=== PATIENT | female | born 1970 | race Caucasian/White ===

== ENCOUNTER 2020-07-07 12:31 | Observation (INO) ==
[2020-07-07] MEDS ORDERED: Ketorolac 15 MG/ML VIAL IVP ONE (12:51)
[2020-07-07] MEDS ORDERED: Ondansetron 4 MG/2 ML VIAL IVP ONE (12:51)
[2020-07-07] MEDS ORDERED: 0.9 % Sodium Chloride 1,000 ML IVC ONE (13:25)
[2020-07-07 13:36] LABS: Basophils # 0.1 K/mcL (0.0-0.2); Basophils % 0.3 %; Hematocrit 38.6 % (35.3-44.9); Hemoglobin 13.4 g/dL (11.5-15.4); Immature Granulocytes % 0.6 % (0-4); Lymphocytes # 1.1 K/mcL (0.6-4.6); Lymphocytes % 5.7 %; Mean Corpuscular HGB Conc 34.7 g/dL (31.6-35.5); Mean Corpuscular Hemoglobin 31.1 pg (28.0-33.3); Mean Corpuscular Volume 89.6 fL (83.0-100.0); Mean Platelet Volume 11.2 fL (9.4-12.4); Monocytes # 1.3 K/mcL (0.0-1.3); Monocytes % 6.4 %; Neutrophils # 16.9 K/mcL (1.6-8.9); Platelet Count 329 K/mcL (140-400); Red Blood Count 4.31 M/mcL (3.82-4.97); Red Cell Distribution Width 13.1 % (11.5-14.5); White Blood Count 19.4 K/mcL (4.3-11.1)
[2020-07-07 14:22] LABS: Bacteria,Urine Few per hpf (None-Few); Bilirubin,Urine Negative (Negative); Blood,Urine Trace (Negative); Clarity,Urine Clear (Clear); Color,Urine Colorless (Yellow); Glucose,Urine (UA) Normal (Normal); Ketones,Urine Trace mg/dL (Negative); Leukocyte Esterase,Urine Negative (Negative); Mucus,Urine Few per lpf (None-Few); Nitrite,Urine Negative (Negative); PH,Urine 6.5 pH Units (5.0-8.0); Protein,Urine Negative (Neg-Trace); RBC,Urine 0-3 per hpf (0-3); Specific Gravity,Urine 1.008 (1.010-1.025); Squamous Epithelial Cell,Urine Few per hpf (None-Few); Urobilinogen,Urine Normal (Normal); WBC,Urine 0-3 per hpf (0-3)
[2020-07-07 15:00] LABS: Calcium 8.4 mg/dL (8.6-10.3); Potassium 3.7 mEq/L (3.5-5.1)
[2020-07-07] MEDS ORDERED: *HR* HYDROcodone/Acet 7.5/325 mg TABLET PO ONE (15:24)
[2020-07-07] MEDS ORDERED: Naloxone 0.4 MG/ML INJ IVP PRN (16:23)
[2020-07-07] MEDS ORDERED: Acetaminophen 325 MG TABLET PO PRN (16:23)
[2020-07-07] MEDS ORDERED: *HR* LORazepam 0.5 MG TABLET PO PRN (16:23)
[2020-07-07] MEDS ORDERED: Ondansetron 4 MG/2 ML VIAL IVP PRN (16:23)
[2020-07-07] MEDS ORDERED: Calcium Gluconate 1gm/50mL 1 GM/50 ML BAG IVPB ONE (16:27)
[2020-07-07] MEDS: 0.9 % Sodium Chloride 1,000 ML IVC SCH (17:09)
[2020-07-07] MEDS: Ketorolac 15 MG/ML VIAL IVP PRN (22:07)
[2020-07-07 23:07] LABS: Influenza A PCR Negative (Negative); Influenza B PCR Negative (Negative); Resp. Syncytial Virus PCR Negative (Negative)
[2020-07-07 23:09] LABS: SARS-CoV-2 by PCR (In House) Negative (Negative)
[2020-07-08 02:15] LABS: Hematocrit 36.1 % (35.3-44.9); Hemoglobin 12.1 g/dL (11.5-15.4); Mean Corpuscular HGB Conc 33.5 g/dL (31.6-35.5); Mean Corpuscular Hemoglobin 30.9 pg (28.0-33.3); Mean Corpuscular Volume 92.3 fL (83.0-100.0); Mean Platelet Volume 10.1 fL (9.4-12.4); Platelet Count 297 K/mcL (140-400); Red Blood Count 3.91 M/mcL (3.82-4.97); Red Cell Distribution Width 13.5 % (11.5-14.5); White Blood Count 14.3 K/mcL (4.3-11.1)
[2020-07-08 02:37] LABS: Calcium 8.2 mg/dL (8.6-10.3); Chol/HDL Ratio 3.7 (0-4.9); Magnesium 1.7 mg/dL (1.6-2.6); Potassium 3.5 mEq/L (3.5-5.1)
[2020-07-08 03:25] LABS: Estimated Average Glucose 111 mg/dl; Hemoglobin A1C 5.5 %
[2020-07-08] MEDS: 0.9 % Sodium Chloride 1,000 ML IVC SCH ×4 (06:46→21:01)
[2020-07-08] MEDS: Ketorolac 15 MG/ML VIAL IVP PRN (06:53)
[2020-07-08] MEDS ORDERED: *HR* OxyCODONE Immed Rel 5 MG TABLET PO PRN ×2 (09:13→14:01)
[2020-07-08] MEDS ORDERED: *HR* FentaNYL (PF) 100 MCG/2 ML VIAL ONE (12:01)
[2020-07-08] MEDS ORDERED: *HR* Propofol 200 MG/20 ML VIAL IVP ONE (12:01)
[2020-07-08] MEDS ORDERED: Isovue-300 50ML VIAL ONE (12:17)
[2020-07-08] MEDS ORDERED: *HR* Midazolam HCl 2 MG/2 ML VIAL ONE (12:32)
[2020-07-08] MEDS ORDERED: CeFAZolin Syr 2,000MG/20 ML 2,000 MG/20 ML SYRINGE IVPB ONE (12:50)
[2020-07-08] MEDS ORDERED: Ketorolac 30 MG/ML VIAL ONE (12:53)
[2020-07-08] MEDS ORDERED: Acetaminophen 325 MG TABLET PO PRN (14:01)
[2020-07-08] MEDS ORDERED: Ondansetron 4 MG/2 ML VIAL IVP PRN (14:01)
[2020-07-08] MEDS ORDERED: Naloxone 0.4 MG/ML INJ IVP PRN (14:01)
[2020-07-08] MEDS ORDERED: *HR* LORazepam 0.5 MG TABLET PO PRN (14:01)
[2020-07-08] MEDS: *HR* Heparin 5,000 UNIT/ML VIAL SQ SCH (18:57)
[2020-07-09 03:09] LABS: Hematocrit 34.6 % (35.3-44.9); Hemoglobin 11.7 g/dL (11.5-15.4); Mean Corpuscular HGB Conc 33.8 g/dL (31.6-35.5); Mean Corpuscular Hemoglobin 31.5 pg (28.0-33.3); Mean Corpuscular Volume 93.3 fL (83.0-100.0); Mean Platelet Volume 10.2 fL (9.4-12.4); Platelet Count 287 K/mcL (140-400); Red Blood Count 3.71 M/mcL (3.82-4.97); Red Cell Distribution Width 13.6 % (11.5-14.5); White Blood Count 12.3 K/mcL (4.3-11.1)
[2020-07-09 03:31] LABS: BUN/Creatinine Ratio 10 (6-26); Blood Urea Nitrogen 10 mg/dL (6-20); Calcium 8.3 mg/dL (8.6-10.3); Carbon Dioxide 25 mEq/L (23-29); Chloride 108 mEq/L (98-107); Glucose 116 mg/dL (70-105); Osmolality,Calculated 288 (280-300); Potassium 3.9 mEq/L (3.5-5.1); Sodium 139 mEq/L (136-145); eGFR For African Americans > 60 (> 60); eGFR For Non-African Americans > 60 (> 60)
[2020-07-09] MEDS: *HR* Heparin 5,000 UNIT/ML VIAL SQ SCH (05:06)
[2020-07-09 07:09] VITALS: BP 113/68
[2020-07-09] MEDS: 0.9 % Sodium Chloride 1,000 ML IVC SCH (08:33)
[2020-07-13 09:10] LABS: Calculi Mass 21 mg
== END 2020-07-09 10:51 | disposition home or self-care (01) ==
LOC: 3ANU 12:31 → EMEROOARM 12:31 → SUATTDRO 15:48 → 3ANU 16:25
PROVIDERS: ADMIT General Practice; ATTEND Family Medicine